=== PATIENT | female | born 1945 | race Caucasian/White ===

== ENCOUNTER → 2016-10-14 | Outpatient (CLI) | payer MEDICARE ==
--- NOTE | 2016-10-14 08:41 | CT ---
EXAMINATION TYPE: CT chest wo con DATE OF EXAM: 10/14/2016 COMPARISON: 01/04/2015 HISTORY: patient complains of shortness of breath. CT DLP: 405.1 mGycm. Automated Exposure Control for Dose Reduction was Utilized. TECHNIQUE: CT scan of the thorax is performed without IV contrast. FINDINGS: LUNGS: The lungs are grossly clear, there is no concerning parenchymal mass or nodule identified. T here is no pleural effusion or pneumothorax seen. The tracheobronchial tree is patent. The previousl y noted 2 nodules within the right right middle lobe are stable measuring 4 mm. Retrospectively there is a 2 mm nodule left upper lobe subpleural which is also stable. Punctate 1 mm nodule left lower lo be axial image 51 stable and has a benign appearance. MEDIASTINUM: Lack of IV contrast is noted to limit evaluation for mediastinal and especially hilar ad enopathy. There are no definitive greater than 1 cm hilar or mediastinal lymph nodes. No cardiomega ly or pericardial effusion is seen. OTHER: Postcholecystectomy clips noted. There is a small accessory spleen. Correlate for mild fatty i nfiltration of liver.. 1 cm soft tissue nodule posteriorly level of the upper thoracic spine appears be related to sebaceous cyst and is stable. IMPRESSION: 1. No acute process 2. Stable pulmonary nodules unchanged from previous exam.
== END | disposition home or self-care (01) ==
LOC: RADCTMAIN 08:09
PROVIDERS: ATTEND Internal Medicine Pulmonary Disease
DX: R91.8 Other nonspecific abnormal finding of lung field (principal); R06.02 Shortness of breath; R05 Cough
CPT/HCPCS: 71250

== ENCOUNTER → 2017-08-08 | Outpatient (CLI) | payer MEDICARE ==
--- NOTE | 2017-08-12 09:14 | MM ---
Reason for exam: screening (asymptomatic). Last mammogram was performed 2 years and 3 months ago. History: Patient is postmenopausal. Benign right mammotome panel of the right breast, January 21, 2005. Took estrogen for 6 years beginning at age 55. Physical Findings: A clinical breast exam by your physician is recommended on an annual basis and results should be correlated with mammographic findings. MG 3D Screening Mammo W/Cad Bilateral CC and MLO view(s) were taken. Prior study comparison: May 10, 2015, bilateral MG screening mammo w CAD. April 14, 2013, bilateral digital screening mammo w/CAD. The breast tissue is heterogeneously dense. This may lower the sensitivity of mammography. Previous mammotome biopsy in the right breast. No significant changes when compared with prior studies. ASSESSMENT: Negative, BI-RAD 1 RECOMMENDATION: Routine screening mammogram of both breasts in 1 year.
== END | disposition home or self-care (01) ==
LOC: RADMAMWWP 13:48
PROVIDERS: ATTEND Family Medicine
DX: Z12.31 Encounter for screening mammogram for malignant neoplasm of breast (principal)
CPT/HCPCS: 77063; 77067

== ENCOUNTER → 2020-04-13 | Outpatient (CLI) | payer MEDICARE | END | disposition home or self-care (01) | LOC: LABWHC1 09:40 | PROVIDERS: ATTEND Family Medicine | DX: U07.1 COVID-19 (principal) | CPT/HCPCS: 87635; C9803 ==

== ENCOUNTER 2021-01-19 06:22 | Emergency (ER) | payer MEDICARE ==
[2021-01-19 06:32] VITALS: RESP 18; TEMP 97.8
[2021-01-19] MEDS ORDERED: ASPIRIN 81 MG PO STA (06:55)
[2021-01-19] MEDS ORDERED: SODIUM CHLORIDE 0.9% 1,000 ML IV STA (06:55)
[2021-01-19 07:11] LABS: Basophils # (A) 0.1 k/uL (0-0.2); Basophils % (A) 1 %; Eosinophils # (A) 0.2 k/uL (0-0.7); Eosinophils % (A) 3 %; HCT 43.1 % (34.0-46.0); HGB 14.2 gm/dL (11.4-16.0); Lymphocytes # (A) 2.9 k/uL (1.0-4.8); Lymphocytes % (A) 41 %; MCH 31.1 pg (25.0-35.0); MCV 94.3 fL (80.0-100.0); Mean Platelet Volume 9.2; Monocytes # (A) 0.5 k/uL (0-1.0); Monocytes % (A) 7 %; Neutrophils # (A) 3.2 k/uL (1.3-7.7); Neutrophils % (A) 45 %; Platelet Count 246 k/uL (150-450); RBC 4.57 m/uL (3.80-5.40); RDW 12.3 % (11.5-15.5); WBC 7.1 k/uL (3.8-10.6)
--- NOTE | 2021-01-19 07:14 | XR ---
EXAMINATION TYPE: XR chest 2V DATE OF EXAM: 01/19/2021 COMPARISON: 01/19/21 HISTORY: Shortness of breath TECHNIQUE: Frontal and lateral views of the chest are obtained. FINDINGS: Scattered senescent parenchymal changes noted. Hyperinflation compatible with COPD. No evidence for infiltrate. No evidence for atelectasis. Heart size is stable. Mediastinal structures are stable and grossly unremarkable. No evidence for hilar prominence. Degenerative changes dorsal spine. IMPRESSION: 1. No evidence for acute pulmonary disease.
--- NOTE | 2021-01-19 07:23 | ED ---
Chest Pain HPI - General Chief Complaint: Chest Pain Stated Complaint: Chest pain, back and shoulder pain Time Seen by Provider: 01/19/21 06:52 Source: patient, RN notes reviewed Mode of arrival: wheelchair - History of Present Illness Initial Comments: 76-year-old female complaining of left shoulder pressure and radicular symptoms down the left arm involving weakness. Patient notes she does have a history of high blood pressure high cholesterol but no other significant cardiac issues. She notes she does have family history for strokes and heart attacks. She notes that she woke up this morning around 4:00 with his arm pressure/pain. She notes that approximately a 5-6 out of 10 with no relief. She decided come the emergency room to get evaluated. She notes she does follow-up with a real estate sales agent next month. She was otherwise well-appearing. She denied any shortness of breath headache nausea vomiting diarrhea constipation fever fatigue chills. - Related Data Home Medications Medication Instructions Recorded Confirmed Meclizine [Antivert] 12.5 mg PO BID 08/26/13 01/19/21 Atorvastatin [Lipitor] 40 mg PO HS 01/19/21 01/19/21 Carbidopa-Levodopa 25-100 mg 1 tab PO BID 01/19/21 01/19/21 [Sinemet 25-100] Fluticasone Propionate [Flovent 2 puff INHALATION RT-BID 01/19/21 01/19/21 Hfa 220 mcg] Irbesartan 300 mg PO DAILY 01/19/21 01/19/21 Montelukast [Singulair] 10 mg PO HS 01/19/21 01/19/21 amLODIPine [Norvasc] 10 mg PO HS 01/19/21 01/19/21 Allergies Allergy/AdvReac Type Severity Reaction Status Date / Time Penicillins Allergy Severe Rash/Hives Verified 01/19/21 10:05 Sulfa (Sulfonamide Allergy Severe Rash/Hives Verified 01/19/21 10:05 Antibiotics) Review of Systems ROS Statement: Those systems with pertinent positive or pertinent negative responses have been documented in the HPI. ROS Other: All systems not noted in ROS Statement are negative. EKG Findings - EKG Comments: EKG Findings:: Ventricular rate 86 bpm, OK interval 186 ms, QRS duration 80 ms, QTC 476 ms, PareT axes 51/-4/39. Normal sinus rhythm, possible left atrial enlargement, minimal voltage QRS, septal infarct age undetermined, lateral infarct age undetermined, inferior infarct age undetermined. Abnormal ECG. Past Medical History Past Medical History: Asthma, Hypertension History of Any Multi-Drug Resistant Organisms: None Reported Past Surgical History: Cholecystectomy, Hysterectomy, Joint Replacement, Orthopedic Surgery Smoking Status: Never smoker Past Alcohol Use History: Occasional Past Drug Use History: None Reported General Exam General appearance: alert, in no apparent distress Head exam: Present: atraumatic, normocephalic, normal inspection Eye exam: Present: normal appearance, PERRL, EOMI. Absent: scleral icterus, conjunctival injection, periorbital swelling ENT exam: Present: normal exam, mucous membranes moist Neck exam: Present: normal inspection Respiratory exam: Present: normal lung sounds bilaterally. Absent: respiratory distress, wheezes, rales, rhonchi, stridor Cardiovascular Exam: Present: regular rate, normal rhythm, normal heart sounds. Absent: systolic murmur, diastolic murmur, rubs, gallop, clicks GI/Abdominal exam: Present: soft, normal bowel sounds. Absent: distended, tenderness, guarding, rebound, rigid Extremities exam: Present: normal inspection, full ROM, normal capillary refill. Absent: tenderness, pedal edema, joint swelling, calf tenderness Neurological exam: Present: alert, oriented X3, CN II-XII intact Expanded Patient oriented to: Present: person, place, time Speech: Present: fluid speech Cranial nerves: EOM's Intact: Normal, Facial Sensation: Normal Cerebellar function: Finger to Nose: Normal, Heel to Delcid: Normal Motor strength exam: RUE: 5, LUE: 5, RLE: 5, LLE: 5 Psychiatric exam: Present: normal affect, normal mood Skin exam: Present: warm, dry, intact, normal color. Absent: rash Course Vital Signs 01/19/21 01/19/21 01/19/21 06:24 07:42 08:00 Temperature 97.8 F Pulse Rate 95 81 79 Respiratory 18 18 18 Rate Blood Pressure 151/83 161/79 O2 Sat by Pulse 97 99 99 Oximetry 01/19/21 01/19/21 01/19/21 09:00 10:00 10:54 Temperature Pulse Rate 77 80 84 Respiratory 18 18 18 Rate Blood Pressure 141/94 O2 Sat by Pulse 99 99 99 Oximetry Chest Pain MDM - MDM 76-year-old female complaining of left shoulder pain with radiation down her arm. Labs,Chest x-ray, EKG, clinical research monitor, 1 L normal saline, 324 mg of aspirin chewed ordered. Labs unremarkable, troponin negative. Repeat troponin ordered, for 10:45 AM. Repeat troponin is also negative. Patient discharge home with follow-up to real estate sales agent as planned. Chest x-ray: No evidence for acute pulmonary disease. Case discussed with Dr. Bobby, patient discharge home in stable condition with follow-up primary care and cardiology. - Wells Criteria Clinical Symptoms of DVT: (0) No No Alternative Diagnosis: (0) No Immobilization of Surgery in Previous 4 Weeks: (0) No Previous DVT/PE: (0) No Hemoptysis: (0) No Malignancy: (0) No - PERC Rule Heart Rate < 100: (0) No No Prior History pf DVT/PE: (0) No No Recent Trauma or Surgery: (0) No Hemoptysis: (0) No No Exogenous Estrogen: (0) No No Clinical Signs Suggesting DVT: (0) No - MARTINE Score Age > 65: (1) Yes 3 or more CAD Risk Factors: (1) Yes Known CAD with more than 50% Stenosis: (0) No Aspirin use within the Past 7 Days: (0) No ST Deviation Greater than 0.5mm: (0) No Disposition Clinical Impression: Left arm pain Disposition: HOME SELF-CARE Condition: Stable Instructions (If sedation given, give patient instructions): Chest Pain (ED) Additional Instructions: Please return to the Emergency Department if symptoms worsen or any other concerns. Follow-up with primary care in 1-2 days. Follow-up with real estate sales agent as planned. Is patient prescribed a controlled substance at d/c from ED?: No Referrals: Riaz Garcia MD [Primary Care Provider] - 1-2 days Time of Disposition: 11:46
[2021-01-19 07:27] LABS: ALT 15 U/L (4-34); African American GFR (CKD) >90 (>60 ml/min/1.73 sqM); Albumin 4.3 g/dL (3.5-5.0); Amylase 74 U/L (30-110); Anion Gap 9 mmol/L; Blood Urea Nitrogen 21 mg/dL (7-17); Calcium 9.9 mg/dL (8.4-10.2); Carbon Dioxide 22 mmol/L (22-30); Chloride 110 mmol/L (98-107); Glucose 107 mg/dL (74-99); Lipase 158 U/L (23-300); Non-African American GFR(CKD) >90 (>60 ml/min/1.73 sqM); Sodium 141 mmol/L (137-145); Total Bilirubin 1.9 mg/dL (0.2-1.3); Total Protein 7.4 g/dL (6.3-8.2)
[2021-01-19 07:43] LABS: AST 27 U/L (14-36); Alkaline Phosphatase 79 U/L (38-126); Magnesium 1.8 mg/dL (1.6-2.3); Potassium 4.1 mmol/L (3.5-5.1)
[2021-01-19 08:13] LABS: Appearance,Urine Clear (Clear); Bacteria,Urine Rare /hpf; Bilirubin,Urine Negative (Negative); Blood,Urine Negative (Negative); Color,Urine Light Yellow; Glucose,Urine (UA) Negative (Negative); Ketones,Urine Negative (Negative); Leukocyte Esterase,Urine Trace (Negative); Mucus,Urine Rare /hpf; Nitrite,Urine Negative (Negative); PH, Urine 5.5 (5.0-8.0); Protein,Urine Negative (Negative); RBC,Urine <1 /hpf (0-5); Specific Gravity,Urine 1.011 (1.001-1.035); Squamous Epithelial Cell,Urine 1 /hpf (0-4); Urobilinogen,Urine <2.0 mg/dL (<2.0); WBC,Urine 2 /hpf (0-5)
[2021-01-19 09:53] LABS: INR 0.9 (<1.2)
[2021-01-19 10:06] LABS: Partial Thromboplastin Time 21.3 sec (22.0-30.0)
[2021-01-19 10:55] VITALS: BP 141/94; PULSE 84
== END 2021-01-19 12:05 | disposition home or self-care (01) ==
LOC: EC 06:22
DX: M25.512 Pain in left shoulder (principal); R53.1 Weakness; R07.9 Chest pain, unspecified; I10 Essential (primary) hypertension; J45.909 Unspecified asthma, uncomplicated; E78.00 Pure hypercholesterolemia, unspecified; Z79.51 Long term (current) use of inhaled steroids; Z79.899 Other long term (current) drug therapy; Z88.0 Allergy status to penicillin; Z88.2 Allergy status to sulfonamides; Z90.49 Acquired absence of other specified parts of digestive tract
CPT/HCPCS: 36415; 71046; 80053; 81001; 82150; 83690; 83735; 84484; 85025; 85610; 85730; 93005; 96360; 99285

== ENCOUNTER 2022-01-15 11:14 | Day surgery (SDC) | payer MEDICARE ==
[2022-01-11 10:12] VITALS: BMI 36.3
[~2022-01-15 11:14] MED LIST: LACTATED RINGERS 1,000 ML IV SCH
[2022-01-15 11:45] VITALS: TEMP 97.3
[2022-01-15] MEDS ORDERED: PROPOFOL 10 MG/ML 20 ML VIAL IV ONE (12:43)
--- NOTE | 2022-01-15 12:46 | P.GSHP ---
History of Present Illness H&P Date: 01/15/22 Chief Complaint: History of polyps, rectal bleeding 77-year-old female with history of colon polyps. Patient has a family history of colon cancer in her mother. Last colonoscopy 5 years ago. Patient has occasional episodes of rectal bleeding. Past Medical History Past Medical History: Asthma, COPD, GI Bleed, Hyperlipidemia, Hypertension, Osteoarthritis (OA), Sleep Apnea/CPAP/BIPAP Additional Past Medical History / Comment(s): fluctuating BP/has passed out from, CPAP used, blood in stool 2 weeks at [facility] , parkinsons History of Any Multi-Drug Resistant Organisms: None Reported Past Surgical History: Cholecystectomy, Hysterectomy, Joint Replacement, Orthopedic Surgery Additional Past Surgical History / Comment(s): kris knee replacement, kris knee arthroscopy, kris cataracts, D&C's Past Anesthesia/Blood Transfusion Reactions: Motion Sickness Smoking Status: Never smoker - Past Family History Mother Family Medical History: Cancer Additional Family Medical History / Comment(s): colon Brother(s) Family Medical History: Cancer Additional Family Medical History / Comment(s): pancreatic Father Family Medical History: Pulmonary Embolus Medications and Allergies Home Medications Medication Instructions Recorded Confirmed Type Meclizine [Antivert] 12.5 mg PO BID 08/26/13 01/15/22 History Atorvastatin [Lipitor] 40 mg PO HS 01/19/21 01/11/22 History Carbidopa-Levodopa 25-100 mg 1 tab PO DIRECTED 01/19/21 01/11/22 History [Sinemet 25-100] Fluticasone Propionate [Flovent 2 puff INHALATION RT-BID 01/19/21 01/11/22 History Hfa 220 mcg] Irbesartan 300 mg PO DAILY 01/19/21 01/15/22 History Montelukast [Singulair] 10 mg PO HS 01/19/21 01/11/22 History amLODIPine [Norvasc] 10 mg PO HS 01/19/21 01/11/22 History Allergies Allergy/AdvReac Type Severity Reaction Status Date / Time Penicillins Allergy Severe Rash/Hives Verified 01/15/22 11:37 Sulfa (Sulfonamide Allergy Severe Rash/Hives Verified 01/15/22 11:37 Antibiotics) Surgical - Exam Vital Signs Temp Pulse Resp BP Pulse Ox 97.3 F L 95 16 160/71 96 01/15/22 11:44 01/15/22 11:44 01/15/22 11:44 01/15/22 11:44 01/15/22 11:44 Physical exam: General: Well-developed, well-nourished HEENT: Normocephalic, sclerae nonicteric Abdomen: Nontender, nondistended Extremities: No edema Neuro: Alert and oriented Assessment and Plan (1) Rectal bleeding Narrative/Plan: Will proceed with colonoscopy Current Visit: Yes Status: Acute Code(s): K62.5 - HEMORRHAGE OF ANUS AND RECTUM SNOMED Code(s): 95172757
--- NOTE | 2022-01-15 13:03 | P.PCN ---
Date of Procedure: 01/15/22 Procedure(s) Performed: PREOPERATIVE DIAGNOSIS: Rectal bleeding, history of polyps, family history of colon cancer POSTOPERATIVE DIAGNOSIS: Tortuous colon, unable to advance beyond the transverse colon, rectal polyp PROCEDURE: Colonoscopy with snare polypectomy ANESTHESIA: MAC SURGEON: Miki Jaimes M.D. SPECIMENS: Rectal polyp ENDOSCOPIC PROCEDURE: The patient was placed on the endoscopy table in the left decubitus position. The Olympus colonoscope was inserted into the anus and passed under direct visualization to the mid transverse colon. We cannot advance further because of significant distal tortuosity. This was despite multiple position changes. The transverse descending and sigmoid colon appeared normal. In the rectum a small polyp was seen and removed using the snare with cautery technique. There is no visible diverticulosis. Digital rectal examination was normal. The patient was taken to the recovery room in stable condition per anesthesia guidelines. RECOMMENDATIONS: Await biopsy results. Recommend barium enema in 8 weeks.
[2022-01-15 14:09] VITALS: BP 164/78; PULSE 76; RESP 18
== END 2022-01-15 14:51 | disposition home or self-care (01) ==
LOC: ORWHC2ENDO 11:14
PROVIDERS: ATTEND Surgery
DX: D12.8 Benign neoplasm of rectum (principal); I10 Essential (primary) hypertension; E78.5 Hyperlipidemia, unspecified; G47.33 Obstructive sleep apnea (adult) (pediatric); J44.9 Chronic obstructive pulmonary disease, unspecified; M19.90 Unspecified osteoarthritis, unspecified site; K21.9 Gastro-esophageal reflux disease without esophagitis; G20 Parkinson's disease; Z80.0 Family history of malignant neoplasm of digestive organs; Z86.010 Personal history of colon polyps; Z79.899 Other long term (current) drug therapy; Z88.2 Allergy status to sulfonamides; Z88.0 Allergy status to penicillin; Z99.89 Dependence on other enabling machines and devices; Z98.41 Cataract extraction status, right eye; Z98.42 Cataract extraction status, left eye; Z90.89 Acquired absence of other organs; Z90.710 Acquired absence of both cervix and uterus; Z98.890 Other specified postprocedural states; T75.3XXD Motion sickness, subsequent encounter; Z82.49 Family history of ischemic heart disease and other diseases of the circulatory system
CPT/HCPCS: 88305; 45385; J2704

== ENCOUNTER → 2022-05-01 | Outpatient (CLI) | payer MEDICARE ==
--- NOTE | 2022-05-01 11:29 | FL ---
EXAMINATION TYPE: FL barium enema w air contrast DATE OF EXAM: 05/01/2022 CLINICAL HISTORY: 77-year-old female sigmoid biopsy for polyp 2 months ago. Incomplete colonoscopy 2 months ago. K62.5 rectal bleed, Z80.0 family history colon ca TECHNIQUE: A double contrast barium enema study is performed. Total fluoroscopy time: 1 minute 51 seconds. Contrast: 1 L Polibar Total images: 57 COMPARISON: None. FINDINGS: Bead Picker view of the abdomen shows overall non-obstructive bowel gas pattern. There are chol ecystectomy clips. Pelvic phleboliths. Prominent redundancy and tortuosity of primarily the sigmoid colon. This causes some limitation in as sessment. Overall, light coating along the superior margin of the hepatic flexure of the colon. Allow ing for these limitations, no evidence of any mass or polyp, obstructing or constricting lesion throu ghout the colon. No significant diverticular disease is noted. A few tiny diverticula are suggested along the hepatic flexure and mid transverse colon. No reflux into the terminal ileum. IMPRESSION: 1. A few tiny diverticula along the hepatic flexure of the colon and mid transverse colon. 2. Prominent redundancy of the sigmoid colon. 3. Otherwise, Normal barium enema study.
== END | disposition home or self-care (01) ==
LOC: RADFLMAIN 08:49
PROVIDERS: ATTEND Surgery
DX: K76.89 Other specified diseases of liver (principal); K62.5 Hemorrhage of anus and rectum; Z86.010 Personal history of colon polyps; Z80.0 Family history of malignant neoplasm of digestive organs
CPT/HCPCS: 74280

== ENCOUNTER → 2024-08-13 | Outpatient (CLI) | payer MEDICARE ==
[2024-08-13 10:27] LABS: Partial Thromboplastin Time 21.1 sec (22.0-30.0); Prothrombin Time 10.7 sec (10.0-12.5)
[2024-08-13 15:08] LABS: HCT 37.7 % (37.2-46.3); HGB 12.3 g/dL (12.0-15.0); MCH 31.4 pg (27.0-32.0); MCHC 32.6 g/dL (32.0-37.0); MCV 96.2 FL (80.0-97.0); Mean Platelet Volume 10.3 FL (9.5-12.2); NRBC Per 100 WBC 0 X 10*3/uL (0.00-0.01); Platelet Count 214 X 10*3/uL (140-440); RBC 3.92 X 10*6/uL (4.10-5.20); RDW 12.4 % (11.5-14.5); WBC 4.83 X 10*3/uL (4.50-10.00)
[2024-08-13 16:56] LABS: ALT 7 U/L (8-44); AST 24 U/L (13-35); Albumin 4.4 g/dL (3.8-4.9); Albumin/Globulin Ratio 1.63 Ratio (1.60-3.17); Alkaline Phosphatase 85 U/L (41-126); Blood Urea Nitrogen 13.2 mg/dL (9.0-27.0); Calcium 9.7 mg/dL (8.7-10.3); Carbon Dioxide 22.1 mmol/L (21.6-31.8); Chloride 109 mmol/L (96-109); Globulin 2.7 g/dL (1.6-3.3); Glucose 104 mg/dL (70-110); Potassium 3.5 mmol/L (3.5-5.5); Sodium 144 mmol/L (135-145); Total Bilirubin 2.3 mg/dL (0.3-1.2); Total Protein 7.1 g/dL (6.2-8.2)
== END | disposition home or self-care (01) ==
LOC: LABWHC1 09:01
PROVIDERS: ATTEND Orthopaedic Surgery
DX: Z01.818 Encounter for other preprocedural examination (principal); Z22.322 Carrier or suspected carrier of Methicillin resistant Staphylococcus aureus; M16.11 Unilateral primary osteoarthritis, right hip; R94.31 Abnormal electrocardiogram [ECG] [EKG]
CPT/HCPCS: 36415; 80053; 85027; 85610; 85730; 86850; 86900; 86901; 87070; 93005

== ENCOUNTER 2024-08-23 07:21 | Day surgery (SDC) | payer MEDICARE ==
[2024-08-19 13:00] VITALS: BMI 36.0
[~2024-08-23 07:21] MED LIST changes: +HYDROmorphone 0.5 MG/0.5 ML SYRINGE IVP PRN; -LACTATED RINGERS 1,000 ML IV SCH; +TRANEXAMIC 1,000 MG/100ML-NACL 1,000 MG in SALINE 1 100ML.BAG IVPB PRN
[2024-08-23] MEDS: IV FLUID CONTINUATION 1,000 ML IV ONE (07:35)
[2024-08-23] MEDS: ONDANSETRON 4 MG/2 ML VIAL IVP ONE (08:18)
[2024-08-23] MEDS: LACTATED RINGERS 1,000 ML IV SCH (08:18)
[2024-08-23] MEDS: DEXAMETHASONE SOD PHOSPHATE 4 MG/ML 1 ML VIAL IVP STA (08:19)
[2024-08-23] MEDS: ACETAMINOPHEN TAB 500 MG TAB PO STA (08:20)
[2024-08-23] MEDS: MELOXICAM 7.5 MG TAB PO STA (08:21)
[2024-08-23] MEDS: MIDAZOLAM 2 MG/2 ML VIAL IV ONE (08:46)
[2024-08-23] MEDS ORDERED: ROPIVACAINE 5 MG/ML 30 ML VIAL ONE (08:56)
[2024-08-23] MEDS ORDERED: TRANEXAMIC 1,000 MG/100ML-NACL PREMIX BAG ONE (08:56)
[2024-08-23] MEDS ORDERED: fentaNYL (PF) 50 MCG/ML 2 ML AMP ONE (08:56)
[2024-08-23] MEDS ORDERED: ePHEDrine 50 MG/ML 1 ML VIAL ONE (08:56)
[2024-08-23] MEDS ORDERED: MIDAZOLAM 2 MG/2 ML VIAL ONE (08:56)
[2024-08-23] MEDS ORDERED: diphenhydrAMINE 50 MG/ML 1 ML VIAL ONE (08:56)
[2024-08-23] MEDS ORDERED: DEXAMETHASONE SOD PHOSPHATE 4 MG/ML 1 ML VIAL ONE (08:56)
[2024-08-23] MEDS ORDERED: KETAMINE HCL IN 0.9 % NACL 50 MG/5 ML SYRINGE ONE (08:56)
[2024-08-23] MEDS ORDERED: PROPOFOL 10 MG/ML 20 ML VIAL IV ONE (08:56)
[2024-08-23] MEDS: ceFAZolin 1,000 MG in SODIUM CHLORIDE 0.9% 1,000 ML IRRIGATION ONE (09:01)
[2024-08-23] MEDS: ceFAZolin 2 GM in DEXTROSE 5% IN WATER 50 ML IVPB PRN (09:01)
[2024-08-23] MEDS: ROPIVACAINE 5 MG/ML 30 ML VIAL MISCELLANE ONE ×2 (09:18→10:04)
--- NOTE | 2024-08-23 10:09 | P.OP ---
Date of Procedure: 08/23/24 Preoperative Diagnosis: Severe osteoarthritis, right hip Postoperative Diagnosis: Severe osteoarthritis, right hip Procedure(s) Performed: Right total hip arthroplasty with a direct anterior approach Implants: [employer] Polarstem standard size 3 with a collar [employer] R3, 3 hole hemispherical acetabular shell, 52 mm [employer] Reflection 6.5 mm cancellus screws, 20 mm 2 [employer] R3, XLPE 20 acetabular liner [employer]hew Oxinium femoral head 36 mm, +0 All components were press-fit. The articulation is Oxinium on polyethylene. Anesthesia: spinal Surgeon: Willy Burt Granulating Machine Operator #1: Silver Bennett Estimated Blood Loss (ml): 250 Pathology: none sent Condition: stable Disposition: PACU Indications for Procedure: After failure of conservative treatment we discussed the surgical and nonsu rgical treatment options at length. Patient wishes to proceed with a total hip arthroplasty with a direct anterior approach. Complications specific to this procedure were discussed at length, including but not limited to infection, leg length discrepancy, dislocation, nerve injury, and fracture. Covid-19 was also discussed at length with the patient, and they are aware of the current policies and procedures. The patient was given the option of delaying surgery, but they elect to proceed knowing these risks. Patient is aware of all these complications and informed consent was obtained Operative Findings: The operative findings are consistent with severe osteoarthritis of the right hip Description of Procedure: The patient was seen and evaluated in the preoperative area and the consent was reviewed. The operative site was marked with a skin marker. The patient verified the procedure and operative site. A STEPHON block was placed by anesthesia in the preoperative area. The patient was then brought to the operating room and given preoperative antibiotics intravenously. 1 g of Tranexamic acid was also given intravenously. A spinal anesthetic was administered by the anesthesia department. The patient was then placed on the Bluff table with the bony prominences well-padded. The hip area was then prepped with a ChloraPrep solution and draped in the usual sterile fashion. A universal timeout was then performed, which confirmed the patient's name, surgical site, ALLERGIES, and procedure being performed on the consent. Next the incision site was located at 1 cm distal and 4 cm lateral to the anterior superior iliac spine. The skin and subcutaneous tissues were sharply incised. Incision was carefully dissected down to the fascia overlying the tensor fascia yassine muscle. This fascia was then incised in line with the muscle fibers. Care was taken to stay laterally in order to avoid injuring the lateral femoral cutaneous nerve. Next, using blunt finger dissection, the tensor fascia yassine muscle was dissected off its investing fascia. The muscle was then carefully retracted laterally with a cobra retractor over the lateral neck of the femur. Next, the circumflex vessels were identified and cauterized using the Aquamantis device. The anterior hip capsule was then exposed. The capsule was then opened and an inverted T fashion. The retractors were then placed intracapsularly. The retractors were maintained intracapsular throughout the procedure. The proximal femur was then visualized. Fluoroscopic x-rays were then taken in order to evaluate the preoperative leg lengths. A small amount of traction was placed on the leg. The femoral neck was then osteotomized at the appropriate level above the lesser trochanter. A small wedge of bone was then removed from the remaining femoral head. Next, using a corkscrew the femoral head was removed from the acetabulum. On gross visual inspection, the femoral head had complete loss of articular cartilage and multiple periarticular osteophytes. The femoral head was then measured. Attention was then turned to the acetabulum. The acetabulum was exposed and any remaining labrum was excised. Sequential reaming of the acetabulum was performed using fluoroscopic guidance until there was a good bed of bleeding cancellus bone. When the appropriate size was reached, a trial was then placed. The position and fit of the trial was checked with fluoroscopy. The trial was then removed. Then, using fluoroscopic guidance, the final implant was impacted at 20 of anteversion and 40 of abduction, and fully seated in the acetabulum. 2 screws were then placed in the acetabulum. Again fluoroscopy was used to check position of the screws. Next, the liner was then impacted, with a 20 elevated liner located in the anterior superior quadrant. Component locking was confirmed. Attention was then directed to the femur. With the aid of the Bluff table, the femur was externally rotated to approximately 130, extended, and adducted under the opposite leg. A side hook was then placed under the proximal femur, and the side hook elevator was used to elevate the proximal femur while releasing the capsule. Retractors were then placed. A capsular release was performed, as well as a release of the conjoined tendon, which afforded excellent v isualization of the proximal femur. Next, a box osteotome was used to lateralize the proximal femur. A presser hand was then used to locate the femoral canal. Sequential broaching was then performed with appropriate size which afforded excellent fixation in the proximal femur. A trial was then placed with appropriate head and neck, and the hip was gently reduced with the aid of the Bluff table. Fluoroscopy was then used to check position of the components, as well as to evaluate the leg lengths and offset. The leg lengths and offset were measured as closely as possible to ensure stability of the hip. The hip was then gently dislocated and the trials were then removed. Final implants were then impacted and the hip was again reduced. Final fluoroscopic x-rays confirmed that the components were in anatomic position. The leg lengths and offset were measured and were found to coincide with the trial measurements. The hip was also taken through range of motion, and found to be stable. The hip was then copiously irrigated with antibiotic solution with pulsatile lavage. The hip was then irrigated with Irrisept solution. The soft tissues were then injected with a ropivacaine solution. A second dose of 1 g of Tranexamic acid was also given intravenously. The fascia was then closed with 2-0 strata fix suture. The subcutaneous tissue was closed with 3-0 Vicryl. The subcuticular tissue was closed with 3-0 moncryl suture. The skin was then closed with Exofin skin glue. After the glue and dried, and Optifoam silver impregnated dressing was applied. The patient was then transferred to the recovery room in stable condition. The music library assistant ALICIA Cardona was required due to the complexity of surgery, and the need for skilled surgical oncologist for positioning, draping, exposure, retraction, and closure of the wound.
[2024-08-23] MEDS ORDERED: SENNOSIDES-DOCUSATE SODIUM 1 EACH TAB PO PRN (10:53)
[2024-08-23] MEDS ORDERED: HYDROcodone/APAP 5-325MG 1 EACH TAB PO PRN (10:53)
[2024-08-23] MEDS ORDERED: hydrOXYzine pamoate 25 MG CAP PO PRN (10:53)
[2024-08-23] MEDS ORDERED: MAGNESIUM HYDROXIDE 2,400 MG/30 ML CUP PO PRN (10:53)
[2024-08-23] MEDS ORDERED: HYDROmorphone 0.5 MG/0.5 ML SYRINGE IVP PRN ×3 (10:53)
[2024-08-23] MEDS ORDERED: NALOXONE 0.4 MG/ML 1 ML VIAL IV PRN (10:53)
--- NOTE | 2024-08-23 11:04 | XR ---
EXAMINATION TYPE: XR Hip Limited RT DATE OF EXAM: 08/23/2024 10:58 AM COMPARISON: None CLINICAL INDICATION: Female, 79 years old with history of POST-OP; PHH, assess alignment and any post operative complication TECHNIQUE: Portable, supine AP view FINDINGS: Patient status post right hip total arthroplasty. Acetabular cup and femoral stem components of the p rosthesis appear well seated without periprosthetic fracture. Alignment grossly anatomic. Soft tissue air related to recent operation. IMPRESSION: Uncomplicated postoperative appearance right total hip arthroplasty. [facility], Workstation: [facility], 08/23/2024 11:02 AM
--- NOTE | 2024-08-23 11:58 | FL ---
Fluoroscopy History: RT ANTERIOR HIP RIGHT ANTERIOR HIP REPLACEMENT, FLUORO TIME: 36 SECONDS, DAP: 3.0310 [facility], , 08/23/2024 11:56 AM
--- NOTE | 2024-08-23 12:53 | XR ---
EXAMINATION TYPE: XR Hip Limited RT DATE OF EXAM: 08/23/2024 10:22 AM COMPARISON: CLINICAL INDICATION: Female, 79 years old with history of RT ANTERIOR HIP; PHH, pain FINDINGS: RIGHT ANTERIOR HIP REPLACEMENT, FLUORO TIME: 36 SECONDS, DAP: 3.0310 3 images are submitted. [facility], Workstation: [facility], 08/23/2024 12:51 PM
[2024-08-23] MEDS: GABAPENTIN 300 MG CAP PO STA (13:43)
--- NOTE | 2024-08-23 14:09 | P.ANPRN ---
Procedure Note - Anesthesia - Nerve Block Performed Right Kashif Single Time Out Performed: Yes Date of Procedure: 08/23/24 Procedure Start Time: 08:34 Procedure Stop Time: 08:40 Location of Patient: PreOp Indication: Acute Post-Operative Pain, Requested by Surgeon Sedation Type: Sedate with meaningful contact maintained Preparation: Sterile Prep Position: Supine Needle Types: Pajunk Needle Gauge: 21 Ultrasound used to visualize needle placement: Yes Ultrasound used to observe medication spread: Yes Blood Aspirated: No Pain Paresthesia on Injection Noted: No Resistance on Injection: Normal Image Stored and Saved: Yes Events: Uneventful and Well Tolerated (Ropivacaine 0.5% 20 cc plus dexamethasone 4 mg)
[2024-08-23] MEDS ORDERED: ACETAMINOPHEN TAB 500 MG TAB PO PRN (15:24)
[2024-08-23] MEDS: ceFAZolin 2 GM in DEXTROSE 5% IN WATER 50 ML IVPB SCH (15:47)
[2024-08-23] MEDS: CARBIDOPA-LEVODOPA 25-100 MG 1 EACH TAB PO SCH (15:48)
[2024-08-23] MEDS: HYDROcodone/APAP 7.5-325MG 1 EACH TAB PO PRN (15:48)
[2024-08-23] MEDS: SODIUM CHLORIDE 0.9% 1,000 ML IV SCH (20:36)
[2024-08-23] MEDS: amLODIPine 10 MG TAB PO SCH (20:36)
[2024-08-23] MEDS: ATORVASTATIN 40 MG TAB PO SCH (20:36)
[2024-08-23] MEDS: MECLIZINE 12.5 MG TAB PO SCH (20:36)
[2024-08-23] MEDS: MONTELUKAST 10 MG TAB PO SCH (20:36)
[2024-08-23] MEDS: FLUTICASONE 220 MCG INHALER INHALATION SCH (20:38)
[2024-08-24 06:40] LABS: HCT 32.9 % (37.2-46.3); HGB 10.8 g/dL (12.0-15.0); Lymphocytes # (A) 1.44 10*3/uL (0.90-5.00); Lymphocytes % (A) 14.8 %; MCH 31.7 pg (27.0-32.0); MCHC 32.8 g/dL (32.0-37.0); MCV 96.5 fL (80.0-97.0); Mean Platelet Volume 10.3 fL (9.5-12.2); Monocytes # (A) 0.81 10*3/uL (0.20-1.00); Monocytes % (A) 8.3 %; Neutrophils # (A) 7.43 10*3/uL (1.80-7.70); Neutrophils % (A) 76.5 %; Platelet Count 182 10*3/uL (140-440); RBC 3.41 10*6/uL (4.10-5.20); RDW 12.2 % (11.5-14.5); WBC 9.72 10*3/uL (4.50-10.00)
[2024-08-24 07:23] VITALS: BP 122/69; PULSE 87; RESP 18; TEMP 97.7
--- NOTE | 2024-08-24 09:16 | P.DS ---
Providers Expected date of discharge: 08/24/24 Attending physician: Willy Burt Consults: 08/23/24 10:53 Consult Physician Routine Consulting Provider: Riaz Garcia Consult Reason/Comments: Postop medical management Do you want consulting provider notified?: Yes Primary care physician: Riaz Garcia - Discharge Diagnosis(es) (1) Primary osteoarthritis of right hip Current Visit: Yes Status: Acute (2) Status post total hip replacement, right Current Visit: Yes Status: Acute Hospital Course: This is a 79-year-old female with known history of degenerative arthritis of the right hip. The patient presents for evaluation. After discussion and consideration patient elects to proceed with total hip arthroplasty with direct anterior approach. The patient is seen preoperatively by primary care physician and cleared for surgery. Patient is admitted to [facility] on 08/23/2024 for total hip arthroplasty with direct anterior approach. The procedure is performed without complication or sequelae. The patient is doing well postoperatively. Labs and vital signs are stable on day of discharge. On day of discharge patient's hip incision is healing well. There is minimal erythema. There is no drainage noted at this time. There is minimal soft tissue swelling to the hip and thigh. Patient has full foot and ankle motion without difficulty or pain. Neurovascular status to the lower extremity is intact. Patient is discharged to home in good condition. Please see med rec for accurate list of home medications. Patient Condition at Discharge: Stable Plan - Discharge Summary Discharge Rx Participant: Yes New Discharge Prescriptions: New HYDROcodone/APAP 7.5-325MG [[place] 7.5-325] 1 each PO Q6HR PRN #28 tab PRN Reason: Pain Aspirin 325 mg PO BID #60 tab Sennosides-Docusate Sodium [Senokot-S] 1 tab PO BID PRN #60 tablet PRN Reason: Constipation No Action Meclizine [Antivert] 12.5 mg PO BID Montelukast [Singulair] 10 mg PO HS Acetaminophen Tab [Tylenol Tab] 1,000 mg PO Q6HR PRN PRN Reason: Pain amLODIPine [Norvasc] 10 mg PO HS Fluticasone Propionate [Flovent Hfa 220 mcg] 2 puff INHALATION RT-BID Irbesartan 300 mg PO QAM Carbidopa-Levodopa 25-100 mg [Sinemet 25-100] 1 tab PO 5XD Atorvastatin [Lipitor] 40 mg PO HS Discharge Medication List Meclizine [Antivert] 12.5 mg PO BID 08/26/13 [History] Atorvastatin [Lipitor] 40 mg PO HS 01/19/21 [History] Carbidopa-Levodopa 25-100 mg [Sinemet 25-100] 1 tab PO 5XD 01/19/21 [History] Fluticasone Propionate [Flovent Hfa 220 mcg] 2 puff INHALATION RT-BID 01/19/21 [History] Irbesartan 300 mg PO QAM 01/19/21 [History] Montelukast [Singulair] 10 mg PO HS 01/19/21 [History] amLODIPine [Norvasc] 10 mg PO HS 01/19/21 [History] Acetaminophen Tab [Tylenol Tab] 1,000 mg PO Q6HR PRN 08/19/24 [History] Aspirin 325 mg PO BID #60 tab 08/23/24 [Rx] HYDROcodone/APAP 7.5-325MG [[place] 7.5-325] 1 each PO Q6HR PRN #28 tab 08/23/24 [Rx] Sennosides-Docusate Sodium [Senokot-S] 1 tab PO BID PRN #60 tablet 08/23/24 [Rx] Follow up Appointment(s)/Referral(s): Jolene Anne, JO [PHYSICIAN FOLDING MACHINE OPERATOR] - 2 Weeks (Patient may follow-up with Jolene Anne PA-C or Dr. Willy Burt at [facility] in 2-3 weeks following discharge. ) Activity/Diet/Wound Care/Special Instructions: 1. Keep Optifoam dressing over the right hip intact over the next 7 days 2. Patient may shower with dressing intact over the surgical site of the right hip 3. Patient may shower without a dressing intact after 7 days his incision site remains clean and dry 4. Weight-bear as tolerated right lower extremity with a walker 5. Take medications as prescribed 6. Any questions or concerns patient may contact [facility] at [phone] Discharge Disposition: HOME WITH HOME HEALTH SERVICES
[2024-08-24] MEDS: LOSARTAN 50 MG TAB PO SCH (09:27)
[2024-08-24] MEDS: ASPIRIN 325 MG TAB PO SCH (09:27)
--- NOTE | 2024-08-25 02:37 | CONS ---
CONSULTATION CHIEF COMPLAINT: Osteoarthritis of the right hip. HISTORY OF PRESENT ILLNESS: This lady is admitted for an elective right hip replacement. She has been fairly healthy otherwise and is a good candidate for her age. REVIEW OF SYSTEMS: She is having no chest pain, shortness of breath, abdominal pain, difficulty voiding, etc. Past medical history, family history, personal and social histories reveal that she is allergic to sulfa and penicillin. MEDICATIONS: She is on, 1. Meloxicam. 2. Vitamin D. 3. Atorvastatin. 4. Amlodipine. 5. Montelukast. 6. Avapro. 7. Carbidopa. 8. Levodopa. The rest of her history is unremarkable. She has never smoked. She does not drink. PHYSICAL EXAMINATION: VITAL SIGNS: Normal. HEAD, EARS, EYES, NOSE, MOUTH, AND THROAT: Normal. CHEST: Clear. CARDIAC: Normal with sinus rhythm. ABDOMEN: Soft, nontender. EXTREMITIES: Normal. NEUROLOGICAL: She is intact. IMPRESSION: 1. Osteoarthritis of right hip. 2. Hypertension. 3. Hyperlipidemia. PLAN: Proceed with her planned replacement. Thank you respectfully, JOSEY / CALLIE: [phone] /
== END 2024-08-24 11:51 | disposition home health service (06) ==
LOC: OR 07:21 → 4SSUR 12:33 → OR 08-24 11:51
PROVIDERS: ATTEND Orthopaedic Surgery
DX: M16.11 Unilateral primary osteoarthritis, right hip (principal); G89.18 Other acute postprocedural pain; E78.5 Hyperlipidemia, unspecified; I10 Essential (primary) hypertension; J45.909 Unspecified asthma, uncomplicated; H91.90 Unspecified hearing loss, unspecified ear; G20.A1 Parkinson's disease without dyskinesia, without mention of fluctuations; Z79.899 Other long term (current) drug therapy; Z88.0 Allergy status to penicillin; Z88.2 Allergy status to sulfonamides; Z79.51 Long term (current) use of inhaled steroids; Z79.1 Long term (current) use of non-steroidal anti-inflammatories (NSAID)
CPT/HCPCS: 94640; 64473; 73501; 27130; C1776; J2250; J1100; J0690 ×2; J2405; J2795; 85025